=== PATIENT | female | born 1990 | race Two or more races ===

== ENCOUNTER 2020-03-25 14:12 | Outpatient (REF) | payer MEDICARE, MEDICAID, SELFPAY | END 2020-03-25 14:13 | disposition home or self-care (01) | LOC: HO.LAB 14:12 | PROVIDERS: Visit Provider Internal Medicine | DX: Z20.828 Contact with and (suspected) exposure to other viral communicable diseases (principal) | CPT/HCPCS: 36415; 87635 ==

== ENCOUNTER 2020-06-08 11:03 | Outpatient (REF) | payer MEDICARE, MEDICAID, SELFPAY | END 2020-06-08 11:04 | disposition home or self-care (01) | LOC: HO.LAB 11:03 | PROVIDERS: PCP Internal Medicine; Visit Provider Internal Medicine | DX: Z20.828 Contact with and (suspected) exposure to other viral communicable diseases (principal) | CPT/HCPCS: C9803; U0003 ==